=== PATIENT | male | born 1950 | race Caucasian/White ===

== ENCOUNTER 2018-08-28 07:41 | Inpatient (IN) | payer MEDICARE, OTHER ==
[~2018-08-28] VITALS: Ht 177.8 cm; Wt 106.1 kg
--- NOTE | 2018-08-28 07:44 | NUR ---
MANAGER UROLOGY: MARGARET PRE-ALERT CALLED AT 07 W/ INFERIOR STEMI, HOSPITAL PRE-ALERT CALLED AT 07
[2018-08-28] MEDS ORDERED: TICAGRELOR 90 MG TABLET ONE (07:45)
[2018-08-28] MEDS ORDERED: MIDAZOLAM 1 MG/ML, 5ML ONE (07:45)
[2018-08-28] MEDS ORDERED: FENTANYL PF 100 MCG/2ML ONE (07:45)
[2018-08-28] MEDS ORDERED: VERAPAMIL 2.5 MG/ML, 2ML ONE (07:45)
[2018-08-28] MEDS ORDERED: LIDOCAINE 2%, 20ML ONE (07:46)
[2018-08-28] MEDS ORDERED: HEPARIN 1,000 UNITS/ML, 10ML ONE (07:46)
[2018-08-28] MEDS ORDERED: BIVALIRUDIN 250 MG ONE ×2 (07:46→08:07)
[2018-08-28] MEDS ORDERED: NITROGLYCERIN 5 MG/ML, 10ML ONE (07:46)
[2018-08-28] MEDS ORDERED: HEPARIN 25,000 UNITS/500ML PMX 500 ML ONE (07:58)
[2018-08-28] MEDS ORDERED: ONDANSETRON 2MG/ML, 2ML ONE (07:58)
[2018-08-28] MEDS ORDERED: ONDANSETRON 2MG/ML, 2ML IVPush ONE (08:00)
[2018-08-28] MEDS ORDERED: HEPARIN 5,000 UNITS/ML, 1ML IV PRN (08:00)
[2018-08-28] MEDS ORDERED: HEPARIN 25,000 UNITS/500ML PMX 500 ML IV PRN (08:00)
[2018-08-28] MEDS ORDERED: HEPARIN 5,000 UNITS/ML, 1ML IV ONE (08:00)
[2018-08-28] MEDS ORDERED: HEPARIN 5,000 UNITS/ML, 1ML ONE (08:01)
--- NOTE | 2018-08-28 08:04 | NUR ---
Stemi called @ [address] Prasad returned call at 0770 Cardiology repaged at 0748 Dr. Le called back at 0759 Law Enforcement Director ready 0805.
--- NOTE | 2018-08-28 08:07 | NUR ---
ANIMAL CYTOLOGIST READY AT 08, PT DEPARTED ED AT 0806 VIA SHANAE ON MONITOR ACCOMPANIED BY NEGRITO CCMargareth RN & ABBY VAZQUEZ RN
[2018-08-28 08:14] LABS: INTERNATIONAL NORMALIZED RATIO 1.06 (0.93-1.1); PROTHROMBIN TIME 11.2 Seconds (9.6-11.5)
[2018-08-28 08:18] LABS: TROPONIN I < 0.015 ng/mL (0.000-0.045)
[2018-08-28 08:37] LABS: BASOPHILS # (AUTO) 0.02 x10^3/uL (0-0.1); BASOPHILS % (AUTO) 0 % (0-1); EOSINOPHILS # (AUTO) 0.16 x10^3/uL (0-0.4); EOSINOPHILS % (AUTO) 1 % (1-7); LYMPHOCYTES # (AUTO) 2.36 x10^3/uL (1-3.4); LYMPHOCYTES % (AUTO) 15 % (22-44); MD NO; MEAN CORPUSCULAR HEMOGLOBIN 31.5 pg (27.5-34.5); MEAN CORPUSCULAR HGB CONC 34.5 g/dL (33.2-36.2); MEAN CORPUSCULAR VOLUME 91.3 fL (81-97); MEAN PLATELET VOLUME 10.6 fL (7.4-10.4); MONOCYTES # (AUTO) 0.99 x10^3/uL (0.2-0.8); MONOCYTES % (AUTO) 6 % (2-9); NEUTROPHILS # (AUTO) 12.06 x10^3/uL (1.8-6.8); NEUTROPHILS % (AUTO) 77 % (42-75); PLATELET COUNT 165 x10^3/uL (130-400); RED BLOOD COUNT 4.85 x10^6/uL (4.38-5.82); RED CELL DISTRIBUTION WIDTH 13.6 % (9.4-14.8)
[2018-08-28] MEDS: SODIUM CHLORIDE 0.9% 1,000 ML IV SCH ×2 (08:53→16:53)
[2018-08-28] MEDS: ASPIRIN 81 MG TABLET EC PO SCH (09:00)
[2018-08-28] MEDS: TICAGRELOR 90 MG TABLET PO SCH ×2 (09:00→21:05)
[2018-08-28] MEDS: METOPROLOL TARTRATE 25 MG TABLET PO SCH ×2 (09:00→21:00)
[2018-08-28 19:38] VITALS: BP 126/68
[2018-08-28] MEDS: ATORVASTATIN 80 MG TABLET PO SCH (21:05)
[2018-08-29 04:37] LABS: ANION GAP 6 mmol/L (5-15); CALCIUM 7.9 mg/dL (8.5-10.1); CHLORIDE 112 mmol/L (98-107)
[2018-08-29 04:46] LABS: CREATININE 0.86 mg/dL (0.7-1.3)
[2018-08-29] MEDS: METOPROLOL TARTRATE 25 MG TABLET PO SCH (09:00)
[2018-08-29] MEDS: TICAGRELOR 90 MG TABLET PO SCH ×2 (09:07→20:32)
[2018-08-29] MEDS: ASPIRIN 81 MG TABLET EC PO SCH (09:07)
[2018-08-29] MEDS: ATORVASTATIN 80 MG TABLET PO SCH (20:32)
[2018-08-30 03:30] VITALS: BP 126/71
[2018-08-30] MEDS ORDERED: MAGNESIUM SULFATE 1 GM in SODIUM CHLORIDE 0.9% 50 ML IV ONE (05:00)
[2018-08-30 07:03] VITALS: BP 106/63
[2018-08-30] MEDS: ASPIRIN 81 MG TABLET EC PO SCH (08:55)
[2018-08-30] MEDS: TICAGRELOR 90 MG TABLET PO SCH (08:55)
[2018-08-30] MEDS ORDERED: LISINOPRIL 5 MG TABLET PO SCH (09:00)
[2018-08-30] MEDS ORDERED: MAGNESIUM SULFATE PMX 2GM/50ML 50 ML IV ONE (09:00)
[2018-08-30] MEDS ORDERED: LISI5TAB7 PO (09:35)
[2018-08-30] MEDS ORDERED: ASPI81TA45 PO (09:35)
[2018-08-30] MEDS ORDERED: CLOP75TA52 PO (09:35)
[2018-08-30] MEDS ORDERED: ATOR-2 PO (09:35)
[2018-08-30] MEDS ORDERED: CLOPIDOGREL 300 MG TABLET ONE (10:20)
[2018-08-30] MEDS ORDERED: NITR0.4T28 SL (11:03)
[2018-08-30] MEDS ORDERED: CLOPIDOGREL 300 MG TABLET PO ONE (13:00)
[2018-08-31] MEDS ORDERED: CLOPIDOGREL 75 MG TABLET PO SCH (09:00)
== END 2018-08-30 12:32 | disposition home or self-care (01) | DRG 246 ==
LOC: ED 07:45 → CSU 09:00 → ED 22:40 → 5SO 08-29 22:14
PROVIDERS: ADMIT Internal Medicine Interventional Cardiology; ATTEND Internal Medicine Interventional Cardiology
PROC: 027035Z Dilation of Coronary Artery, One Artery with Two Drug-eluting Intraluminal Devices, Percutaneous Approach (ICD-10-PCS; principal; 2018-08-28)
PROC: 4A023N7 Measurement of Cardiac Sampling and Pressure, Left Heart, Percutaneous Approach (ICD-10-PCS; 2018-08-28)
PROC: B2111ZZ Fluoroscopy of Multiple Coronary Arteries using Low Osmolar Contrast (ICD-10-PCS; 2018-08-28)
PROC: B2151ZZ Fluoroscopy of Left Heart using Low Osmolar Contrast (ICD-10-PCS; 2018-08-28)
DX: I21.19 ST elevation (STEMI) myocardial infarction involving other coronary artery of inferior wall (principal); I50.33 Acute on chronic diastolic (congestive) heart failure; I25.10 Atherosclerotic heart disease of native coronary artery without angina pectoris; E78.5 Hyperlipidemia, unspecified; E66.9 Obesity, unspecified; E78.00 Pure hypercholesterolemia, unspecified; I08.0 Rheumatic disorders of both mitral and aortic valves; R00.1 Bradycardia, unspecified; Z82.49 Family history of ischemic heart disease and other diseases of the circulatory system; Z95.5 Presence of coronary angioplasty implant and graft; Z87.891 Personal history of nicotine dependence; I25.2 Old myocardial infarction; Z68.33 Body mass index [BMI] 33.0-33.9, adult
CPT/HCPCS: 0399T; 36415; 71045; 80048; 83735; 84484; 85014; 85018; 85025; 85520; 85610; 85730; 87081; 93005; 93306; 93458; 99156; 99157; 99291; C1769; C1894; G0378; J0583; J1644; J2250; J2405; J3010; J3475; J3490; C1725; C1874; C1887; J7030; Q9967

== ENCOUNTER 2019-03-12 15:35 | Outpatient (CLI) | payer MEDICARE ==
[~2019-03-12 15:35] MED LIST: ASPI81TA45 PO; ATOR-2 PO; CLOP75TA52 PO; LISI5TAB7 PO; NITR0.4T28 SL
== END 2019-03-12 23:59 | disposition home or self-care (01) ==
LOC: CVU 15:35
PROVIDERS: ATTEND Internal Medicine Cardiovascular Disease
DX: I65.23 Occlusion and stenosis of bilateral carotid arteries (principal); I25.10 Atherosclerotic heart disease of native coronary artery without angina pectoris; E78.2 Mixed hyperlipidemia
CPT/HCPCS: 93880

== ENCOUNTER 2019-08-29 21:29 | Inpatient (IN) | payer OTHER, MEDICARE ==
[~2019-08-29] VITALS: Ht 177.8 cm; Wt 109.0 kg
[2019-08-29 22:06] LABS: BASOPHILS # (AUTO) 0.08 x10^3/uL (0-0.1); BASOPHILS % (AUTO) 1 % (0-1); EOSINOPHILS # (AUTO) 0.13 x10^3/uL (0-0.4); EOSINOPHILS % (AUTO) 2 % (1-7); LYMPHOCYTES # (AUTO) 2.62 x10^3/uL (1-3.4); LYMPHOCYTES % (AUTO) 29 % (22-44); MD NO; MEAN CORPUSCULAR HEMOGLOBIN 31.2 pg (27.5-34.5); MEAN CORPUSCULAR HGB CONC 33.4 g/dL (33.2-36.2); MEAN CORPUSCULAR VOLUME 93.3 fL (81-97); MEAN PLATELET VOLUME 10.1 fL (7.4-10.4); MONOCYTES # (AUTO) 0.61 x10^3/uL (0.2-0.8); MONOCYTES % (AUTO) 7 % (2-9); NEUTROPHILS # (AUTO) 5.46 x10^3/uL (1.8-6.8); NEUTROPHILS % (AUTO) 61 % (42-75); PLATELET COUNT 174 x10^3/uL (130-400); RED BLOOD COUNT 5.24 x10^6/uL (4.38-5.82); RED CELL DISTRIBUTION WIDTH 13.7 % (9.4-14.8)
[2019-08-29 22:13] LABS: ALANINE AMINOTRANSFERASE 35 U/L (12-78); ALBUMIN 4.1 g/dL (3.4-5.0); ANION GAP 4 mmol/L (5-15); CALCIUM 9.6 mg/dL (8.5-10.1); CHLORIDE 108 mmol/L (98-107); CREATININE 1.03 mg/dL (0.7-1.3)
[2019-08-29 22:17] LABS: ALKALINE PHOSPHATASE 54 U/L (45-117); BILIRUBIN,TOTAL 0.4 mg/dL (0.2-1.0); TOTAL PROTEIN 7.8 g/dL (6.4-8.2); TROPONIN I < 0.015 ng/mL (0.000-0.045)
[2019-08-29] MEDS ORDERED: ASPIRIN 81 MG TABLET CHEW ONE (23:44)
[2019-08-29] MEDS ORDERED: MORPHINE SULFATE 4 MG/ML, 1ML ONE (23:44)
[2019-08-29] MEDS ORDERED: ONDANSETRON 2MG/ML, 2ML ONE (23:44)
[2019-08-30] VITALS (8 sets, daily range): BP systolic 107–124; BP diastolic 57–78
[2019-08-30] MEDS ORDERED: ASPIRIN 81 MG TABLET CHEW PO ONE
[2019-08-30] MEDS ORDERED: MORPHINE SULFATE 4 MG/ML, 1ML IVPush PRN
[2019-08-30] MEDS ORDERED: ONDANSETRON 2MG/ML, 2ML IVPush PRN
--- NOTE | 2019-08-30 00:11 | NUR ---
PT WATCHING TV. PAIN HAS IMPROVED. MEDS/MAR. WATER PROVIDED. AWAITING ADMIT ORDERS.
[2019-08-30] MEDS ORDERED: ONDANSETRON ODT 4 MG PO PRN (01:00)
[2019-08-30] MEDS ORDERED: morphine SULFATE 10 MG/ML, 1ML IVPush PRN (01:00)
[2019-08-30] MEDS ORDERED: BISACODYL 10 MG SUPP PR PRN (01:00)
[2019-08-30] MEDS ORDERED: POLYETHYLENE GLYCOL 17 GM PACKET PO PRN (01:00)
[2019-08-30] MEDS ORDERED: NITROGLYCERIN 0.4 MG BOTTLE (25 TABS) SL PRN (01:00)
[2019-08-30] MEDS ORDERED: ACETAMINOPHEN 325 MG TABLET PO PRN (01:00)
[2019-08-30] MEDS: HEPARIN 5,000 UNITS/ML, 1ML SQ SCH ×3 (02:47→20:17)
[2019-08-30 04:44] LABS: TROPONIN I < 0.015 ng/mL (0.000-0.045)
[2019-08-30] MEDS: LISINOPRIL 5 MG TABLET PO SCH (08:09)
[2019-08-30] MEDS: SODIUM CHLORIDE FLUSH 10ML SYR IVF SCH ×2 (08:09→20:18)
[2019-08-30] MEDS: ASPIRIN 81 MG TABLET EC PO SCH (08:09)
[2019-08-30] MEDS: CLOPIDOGREL 75 MG TABLET PO SCH (08:10)
[2019-08-30] MEDS: SENNA/DOCUSATE TABLET PO SCH (08:12)
[2019-08-30] MEDS ORDERED: REGADENOSON 0.4 MG/5 ML SYRINGE ONE (08:25)
[2019-08-30 10:50] LABS: TROPONIN I < 0.015 ng/mL (0.000-0.045)
[2019-08-30] MEDS ORDERED: ATORVASTATIN 80 MG TABLET PO SCH (21:00)
[2019-08-31 00:49] VITALS: BP 99/55
[2019-08-31] MEDS: HEPARIN 5,000 UNITS/ML, 1ML SQ SCH ×2 (05:08→12:36)
[2019-08-31 05:33] LABS: CHLORIDE 108 mmol/L (98-107)
[2019-08-31 05:38] LABS: ANION GAP 6 mmol/L (5-15); CALCIUM 8.3 mg/dL (8.5-10.1)
[2019-08-31 06:43] VITALS: BP 113/65
[2019-08-31] MEDS: CLOPIDOGREL 75 MG TABLET PO SCH (09:15)
[2019-08-31] MEDS: ASPIRIN 81 MG TABLET EC PO SCH (09:15)
[2019-08-31] MEDS: LISINOPRIL 5 MG TABLET PO SCH (09:15)
[2019-08-31] MEDS: SENNA/DOCUSATE TABLET PO SCH (09:15)
[2019-08-31] MEDS: SODIUM CHLORIDE FLUSH 10ML SYR IVF SCH (09:22)
[2019-08-31 13:19] VITALS: BP 109/67
[2019-08-31] MEDS ORDERED: NITR0.4T28 SL (16:07)
== END 2019-08-31 17:10 | disposition home or self-care (01) | DRG 282 ==
LOC: ED 23:15 → EDIP 23:40 → 5SO 08-30 00:54 → DCLOUNGE 08-31 17:01
PROVIDERS: ADMIT Family Medicine; ATTEND Family Medicine
DX: I21.4 Non-ST elevation (NSTEMI) myocardial infarction (principal); I35.1 Nonrheumatic aortic (valve) insufficiency; I25.110 Atherosclerotic heart disease of native coronary artery with unstable angina pectoris; I25.2 Old myocardial infarction; I10 Essential (primary) hypertension; E78.5 Hyperlipidemia, unspecified; E66.9 Obesity, unspecified; F17.200 Nicotine dependence, unspecified, uncomplicated; I70.0 Atherosclerosis of aorta; R00.1 Bradycardia, unspecified; Z79.82 Long term (current) use of aspirin; Z82.3 Family history of stroke; Z86.73 Personal history of transient ischemic attack (TIA), and cerebral infarction without residual deficits; Z95.5 Presence of coronary angioplasty implant and graft; Z82.49 Family history of ischemic heart disease and other diseases of the circulatory system; Z80.9 Family history of malignant neoplasm, unspecified; Z72.89 Other problems related to lifestyle; Z68.34 Body mass index [BMI] 34.0-34.9, adult
CPT/HCPCS: 36415; 71045; 78452; 80048; 80053; 84484; 85025; 93005; 93017; 93306; 96374; 96375; G0378; J1644; J2405; J2785; A9502; J2270

== ENCOUNTER 2020-04-25 06:12 | Observation (INO) | payer OTHER, MEDICARE ==
[~2020-04-25] VITALS: Ht 177.8 cm; Wt 107.0 kg
[2020-04-25] MEDS ORDERED: ASPIRIN 81 MG TABLET CHEW PO ONE (06:30)
[2020-04-25 06:42] LABS: BASOPHILS # (AUTO) 0.08 x10^3/uL (0-0.1); BASOPHILS % (AUTO) 1 % (0-1); EOSINOPHILS # (AUTO) 0.15 x10^3/uL (0-0.4); EOSINOPHILS % (AUTO) 2 % (1-7); LYMPHOCYTES # (AUTO) 2.31 x10^3/uL (1-3.4); LYMPHOCYTES % (AUTO) 32 % (22-44); MD NO; MEAN CORPUSCULAR HEMOGLOBIN 30.5 pg (27.5-34.5); MEAN CORPUSCULAR HGB CONC 33.6 g/dL (33.2-36.2); MEAN CORPUSCULAR VOLUME 90.8 fL (81-97); MEAN PLATELET VOLUME 9.1 fL (7.4-10.4); MONOCYTES # (AUTO) 0.47 x10^3/uL (0.2-0.8); MONOCYTES % (AUTO) 6 % (2-9); NEUTROPHILS # (AUTO) 4.29 x10^3/uL (1.8-6.8); NEUTROPHILS % (AUTO) 59 % (42-75); PLATELET COUNT 170 x10^3/uL (130-400); RED BLOOD COUNT 4.92 x10^6/uL (4.38-5.82); RED CELL DISTRIBUTION WIDTH 13.6 % (9.4-14.8)
--- NOTE | 2020-04-25 06:48 | NUR ---
THIS PT HAS A HX OF 3 MIs WITH 5 STENTS. PT AWOKE AROUND 0400 WITH LEFT ARM AND NECK DISCOMFORT. PT HAS DENIED PAIN. PT ALSO COMPLAINED OF NAUSEA, DIAPHORESIS, AND DIZZINESS AT 0400. PT TOOK 324 ASA, 1 NITRO TAB AND 1000MG TYLENOL. PT STATES HE IS BASELINE BRADICARDIC. PT CONNECTED TO BP, CARDIAC AND O2 MONITORS. PT DENIES ANY COMPLAINTS AT THIS TIME, RESPIRATIONS EVEN AND UNLABORED, NO SIGNS OF DISTRESS. CALL [facility] IN [place], BEDRAILS UP X2. BEDSIDE REPORT GIVEN TO KARON GROVE.
[2020-04-25 06:54] LABS: ALBUMIN 3.7 g/dL (3.4-5.0); ANION GAP 7 mmol/L (5-15); CALCIUM 8.7 mg/dL (8.5-10.1); CHLORIDE 110 mmol/L (98-107)
[2020-04-25 06:57] LABS: TROPONIN I < 0.015 ng/mL (0.000-0.045)
--- NOTE | 2020-04-25 06:58 | NUR ---
REPORT RECEIVED FROM DALE BRANTLEY.
--- NOTE | 2020-04-25 07:58 | NUR ---
EDMD AT BEDSIDE TO EXPLAIN ALL RESULTS AT THIS TIME.
[2020-04-25] MEDS ORDERED: LOSA25TA25 PO (08:12)
[2020-04-25] MEDS ORDERED: VACEPA (08:13)
--- NOTE | 2020-04-25 08:20 | NUR ---
PT RESTING IN [facility]. PT'S AOX4. RESPS EVEN AND UNLABORED. ALL MONITORS IN PLACE. CALL [facility] WITHIN REACH. AT BEDSIDE.
--- NOTE | 2020-04-25 09:36 | NUR ---
URINAL GIVEN PER REQUEST AT THIS TIME.
--- NOTE | 2020-04-25 09:46 | NUR ---
REPORT GIVEN TO MARTÍN BRANTLEY. ALL QUESTIONS ANSWERED.
[2020-04-25 10:31] VITALS: BP 123/72
[2020-04-25] MEDS ORDERED: ONDANSETRON ODT 4 MG PO PRN (11:30)
[2020-04-25] MEDS ORDERED: NITROGLYCERIN 0.4 MG BOTTLE (25 TABS) SL PRN (11:30)
[2020-04-25] MEDS ORDERED: ACETAMINOPHEN 325 MG TABLET PO PRN (11:30)
[2020-04-25] MEDS ORDERED: ONDANSETRON 2MG/ML, 2ML IVPush PRN (11:30)
[2020-04-25] MEDS ORDERED: BISACODYL 10 MG SUPP PR PRN (11:30)
[2020-04-25] MEDS ORDERED: morphine SULFATE 10 MG/ML, 1ML IVPush PRN (11:30)
[2020-04-25] MEDS ORDERED: OXYcodone IR 5MG TABLET PO PRN (11:30)
[2020-04-25] MEDS ORDERED: hydrALAzine 20 MG/ML, 1ML IVPush PRN (11:30)
[2020-04-25] MEDS ORDERED: PROMETHAZINE 25 MG/ML, 1ML IM PRN (11:30)
[2020-04-25] MEDS ORDERED: DOCUSATE 100 MG CAPSULE PO PRN (11:30)
[2020-04-25] MEDS ORDERED: POLYETHYLENE GLYCOL 17 GM PACKET PO PRN (11:30)
[2020-04-25 12:17] LABS: FREE T4 (FREE THYROXINE) 0.85 ng/dL (0.76-1.46)
[2020-04-25] MEDS: HEPARIN 5,000 UNITS/ML, 1ML SQ SCH ×2 (12:38→19:30)
[2020-04-25 12:43] VITALS: BP 139/81
[2020-04-25] MEDS ORDERED: REGADENOSON 0.4 MG/5 ML SYRINGE ONE (13:24)
[2020-04-25 16:55] LABS: TROPONIN I < 0.015 ng/mL (0.000-0.045)
[2020-04-25] MEDS: CLOPIDOGREL 75 MG TABLET PO ONE ×2 (18:29→20:02)
[2020-04-25 19:35] VITALS: BP 142/81
[2020-04-25] MEDS: ATORVASTATIN 80 MG TABLET PO SCH (20:02)
[2020-04-25 22:38] LABS: TROPONIN I < 0.015 ng/mL (0.000-0.045)
[2020-04-26 00:02] VITALS: BP 119/74
[2020-04-26 01:07] LABS: BASOPHILS # (AUTO) 0.03 x10^3/uL (0-0.1); BASOPHILS % (AUTO) 0 % (0-1); EOSINOPHILS # (AUTO) 0.19 x10^3/uL (0-0.4); EOSINOPHILS % (AUTO) 2 % (1-7); LYMPHOCYTES # (AUTO) 3.43 x10^3/uL (1-3.4); LYMPHOCYTES % (AUTO) 36 % (22-44); MD NO; MEAN CORPUSCULAR HEMOGLOBIN 30.7 pg (27.5-34.5); MEAN CORPUSCULAR VOLUME 90.2 fL (81-97); MEAN PLATELET VOLUME 9.4 fL (7.4-10.4); MONOCYTES # (AUTO) 0.65 x10^3/uL (0.2-0.8); MONOCYTES % (AUTO) 7 % (2-9); NEUTROPHILS # (AUTO) 5.33 x10^3/uL (1.8-6.8); NEUTROPHILS % (AUTO) 55 % (42-75); PLATELET COUNT 168 x10^3/uL (130-400); RED BLOOD COUNT 4.83 x10^6/uL (4.38-5.82); RED CELL DISTRIBUTION WIDTH 13.6 % (9.4-14.8)
[2020-04-26 01:12] LABS: ALANINE AMINOTRANSFERASE 43 U/L (12-78); ALBUMIN 3.7 g/dL (3.4-5.0); ANION GAP 8 mmol/L (5-15); CALCIUM 8.5 mg/dL (8.5-10.1); CHLORIDE 105 mmol/L (98-107); CHOLESTEROL, TOTAL 118 mg/dL (140-239); CREATININE 0.84 mg/dL (0.7-1.3)
[2020-04-26 01:15] LABS: ALKALINE PHOSPHATASE 42 U/L (45-117); BILIRUBIN,TOTAL 0.7 mg/dL (0.2-1.0); CHOL/HDL RATIO 4.5; HDL CHOL % 22 % (26-37); HDL CHOLESTEROL (DIRECT) 26 mg/dL (40-60); LDL CHOLESTEROL,CALCULATED 39 mg/dL (54-169); LDL/HDL RATIO 1.5 (0.5-3.0); TOTAL PROTEIN 6.9 g/dL (6.4-8.2); TRIGLYCERIDES 265 mg/dL (50-200); VLDL CHOLESTEROL 53 mg/dL (0-25)
[2020-04-26 01:19] LABS: TROPONIN I < 0.015 ng/mL (0.000-0.045)
[2020-04-26] MEDS: HEPARIN 5,000 UNITS/ML, 1ML SQ SCH ×3 (03:30→19:30)
[2020-04-26] MEDS ORDERED: ASPIRIN 325 MG TABLET EC PO SCH (06:00)
[2020-04-26 06:56] VITALS: BP 128/78
[2020-04-26] MEDS: FENOFIBRATE 145 MG TABLET PO SCH (08:59)
[2020-04-26] MEDS: CLOPIDOGREL 75 MG TABLET PO SCH (08:59)
[2020-04-26] MEDS: LOSARTAN 25MG TABLET PO SCH (09:00)
[2020-04-26] MEDS: SODIUM CHLORIDE 0.9% 1,000 ML IV SCH ×7 (11:39→23:05)
[2020-04-26 12:28] VITALS: BP 124/77
[2020-04-26] MEDS ORDERED: HEPARIN 1,000 UNITS/ML, 10ML ONE (14:18)
[2020-04-26] MEDS ORDERED: MIDAZOLAM 1 MG/ML, 5ML ONE (14:18)
[2020-04-26] MEDS ORDERED: FENTANYL PF 100 MCG/2ML ONE (14:18)
[2020-04-26] MEDS ORDERED: BIVALIRUDIN 250 MG ONE ×2 (14:18→14:32)
[2020-04-26] MEDS ORDERED: TICAGRELOR 90 MG TABLET ONE (14:18)
[2020-04-26] MEDS ORDERED: LIDOCAINE-MPF 1%, 5ML ONE (14:18)
[2020-04-26] MEDS ORDERED: VERAPAMIL 2.5 MG/ML, 2ML ONE (14:18)
[2020-04-26 18:23] VITALS: BP 127/72
[2020-04-26] MEDS: ATORVASTATIN 80 MG TABLET PO SCH (20:03)
[2020-04-27 03:16] VITALS: BP 110/69
[2020-04-27] MEDS: HEPARIN 5,000 UNITS/ML, 1ML SQ SCH (03:30)
[2020-04-27] MEDS: SODIUM CHLORIDE 0.9% 1,000 ML IV SCH ×5 (04:00→07:38)
[2020-04-27 05:31] LABS: ANION GAP 5 mmol/L (5-15); CALCIUM 8.6 mg/dL (8.5-10.1); CHLORIDE 110 mmol/L (98-107)
[2020-04-27 05:32] LABS: CREATININE 0.83 mg/dL (0.7-1.3)
[2020-04-27] MEDS ORDERED: ASPIRIN 81 MG TABLET EC PO SCH (06:00)
[2020-04-27] MEDS: FENOFIBRATE 145 MG TABLET PO SCH (08:15)
[2020-04-27] MEDS: LOSARTAN 25MG TABLET PO SCH (08:15)
[2020-04-27] MEDS: CLOPIDOGREL 75 MG TABLET PO SCH (08:15)
[2020-04-27] MEDS ORDERED: ASPI81TA45 PO (08:58)
[2020-04-27] MEDS ORDERED: FENO145T19 PO (08:58)
[2020-04-27 09:27] VITALS: BP 136/77
== END 2020-04-27 10:20 | disposition home or self-care (01) ==
LOC: ED 06:57 → EDIP 08:08 → INTOOBSV 08:08 → 5SO 10:18 → DCLOUNGE 04-27 10:15
PROVIDERS: ADMIT Internal Medicine Infectious Disease; ATTEND Internal Medicine Infectious Disease
DX: R07.89 Other chest pain (principal); M79.622 Pain in left upper arm; M54.2 Cervicalgia; I25.118 Atherosclerotic heart disease of native coronary artery with other forms of angina pectoris; I10 Essential (primary) hypertension; E78.2 Mixed hyperlipidemia; I35.1 Nonrheumatic aortic (valve) insufficiency; E66.9 Obesity, unspecified; R00.1 Bradycardia, unspecified; I25.2 Old myocardial infarction; E78.00 Pure hypercholesterolemia, unspecified; R42 Dizziness and giddiness; I77.819 Aortic ectasia, unspecified site; R94.39 Abnormal result of other cardiovascular function study; Z86.73 Personal history of transient ischemic attack (TIA), and cerebral infarction without residual deficits; Z79.899 Other long term (current) drug therapy; Z87.891 Personal history of nicotine dependence; Z79.82 Long term (current) use of aspirin; Z95.5 Presence of coronary angioplasty implant and graft
CPT/HCPCS: 36415; 71045; 78452; 80048; 80053; 80061; 82040; 83036; 83735; 84439; 84443; 84484; 85025; 93005; 93017; 93306; 93458; 96360; 96361; 99156; 99285; A9502; C1769; C1894; G0378; J0583; J1644; J2250; J2785; J3010; J7030; Q9967